=== PATIENT | male | born 2000 | race Caucasian/White ===

== ENCOUNTER → 2021-10-27 14:12 | Outpatient (CLI) | payer BC, SELFPAY ==
--- NOTE | ~2021-10-27 | XR_ITS ---
[id number]_CR DATE: 10/27/2021 14:22 INDICATION: Neck pain TECHNIQUE: AP, open-mouth, lateral, swimmer views COMPARISON: None FINDINGS: There is reversal of cervical curvature. There is levoscoliosis of the cervical and upper t horacic spine. C1 and C2 are normally aligned and the odontoid process is intact. No fracture or dislocation or lock ed facet or prevertebral soft tissue swelling is detected. The cervical interspaces appear preserved. IMPRESSION: Reversal cervical curvature and mild cervicothoracic levoscoliosis Reviewed, dictated and finalized at [facility]. Reviewed, dictated and finalized at [facility].
== END ==
PROVIDERS: PCP Family Medicine Adolescent Medicine; Visit Provider Family Medicine Adolescent Medicine
DX: M54.2 Cervicalgia (principal)
CPT/HCPCS: 72040